=== PATIENT | female | born 1970 | race Caucasian/White ===

== ENCOUNTER 2017-01-15 07:28 | Day surgery (SDC) | payer OTHER ==
[~2017-01-15] VITALS: Ht 160 cm; Wt 73.9 kg
[~2017-01-15 07:28] MED LIST: ACET-1651 PO; IBUP200C5 PO; LEVO100T12 PO; LIDOCAINE 1% (10mg/ml) 2ml SDV INJ ONE; LR 1,000 ML IV SCH
[2017-01-15 07:42] VITALS: BP 102/64; PULSE 88; RESP 13; TEMP 98.2; O2SAT 96; Ht 160 cm; Wt 73.9 kg
[2017-01-15] MEDS ORDERED: RANI150T7 PO (08:00)
--- NOTE | 2017-01-15 08:15 | ANESPREOP ---
Anesthesia Record Date and Time DATE: 01/15/17 TIME: 08:11 Pre-Op Diagnosis constipation, stool changes Proposed Surgical Procedure COLONOSCOPY NPO since: > [place] Allergies: Coded Allergies: No Known Drug Allergies (Verified Allergy, Unknown, 01/15/17) Ht/Wt/BMI Height: 5 ' 3.00 " Weight: 73.900 kg BMI: 28.9 kg/m2 Vital Signs Date Time Temp Pulse Resp B/P Pulse Ox O2 Delivery O2 Flow Rate FiO2 01/15/17 07:42 98.2 88 13 102/64 96 Room Air Medications Inpatient Medications Current Medications Medications (Trade) Dose Ordered Sig/Vlad Start Time Stop Time Status Last Admin Dose Admin Lactated Ringer's (Lactated Ringers) 1,000 ml @ 50 mls/hr Q20H 01/15/17 07:00 01/15/17 08:01 50 MLS/HR Acetaminophen (Tylenol Extra Strength) 500 Mg Tablet, 500 MG PO DAILY, (Reported ) Last Taken: on 01/12/17 Ibuprofen (Advil) 200 Mg Capsule, 600 MG PO, ( Reported) Last Taken: on 01/08/17 Levothyroxine Sodium (Levothyroxine Sodium) 100 Mcg Tablet, 1 TAB PO ACB, (Reported) Once daily before breakfast Last Taken: on 01/14/17 0730 Ranitidine HCl (Ranitidine HCl) 150 Mg Tablet, 150 MG PO DAILY PRN for PRN ORDERS, (Reported) Last Taken: on 01/11/17 Currently on Beta Gera: No Medical/Surgical History Anesthesia PMH: Reports: *Diabetes (HYPOGLYCEMIA-CONTROLLED WITH DIET), Headaches, Reflux, Thyroid Disease (HYPOTHYROIDISM ), Denies: Anesthesia Reactions (NO AIRWAY ISSUES, SLOW TO WAKE), Arthritis, CHF, CVA/Stroke/TIA, Cancer, Clotting Problems, Deep Vein Thrombosis, Glaucoma, Hepatitis, Hiatal Hernia, Malignant Hyperthermia, Renal Disease, Rheumatic Fever, Sleep Apnea Smoking Status: Never smoker Has pt. smoked today?: No Substance Use Type: does not use Alcohol Intake: none HX of Last Menstrual Period: HYST. Past Surgical History Orthopedic Surgeries: Abdominal Surgeries: Yes - EUGENIA Genitourinary Surgeries: Cardiac Surgeries: Endocrine Surgeries: Reproductive Surgeries: Yes - HYST. , D&C, CERCLAGE X3 Neurological Surgeries: Ear Surgeries: Nose Surgeries: Throat Surgeries: Other Surgeries: Yes - HYSTERECYOMY Anesthesia Adverse Reactions: FOUND none Family Hx of Anesthesia Advers: none Hx of Motion Sickness: No Physical Exam Respiratory: Lungs clear Cardiovascular: FOUND Regular rate, rhythm, FOUND No murmur Airway Assessment Mallampati Score: II TMD: 3 Fingerbreadths Neck Extension: Good Overall Assessment: No Airway Concerns ASA: 2 Plan Anesthesia Plan: TIVA Discussion Discussed risks/options/alternatives of anesthesia and questions answered. Patient consents. Nursing pain assessment noted. Present: Family Member Attestation Statement Prior to the delivery of any anesthetic medication, I examined the patient, developed the plan, obtained the patient's consent and discussed the risk and benefits of the procedure with the patient/guardian. MAXX BHANDARI [employer] CONSULTANT STUDENT Jan 15, 2017 08:15
[2017-01-15] MEDS ORDERED: PROPOFOL 500mg 50 ML IV ONE (09:08)
[2017-01-15] MEDS ORDERED: LIDOCAINE 2% (20mg/ml) 5ml PF SDV ONE (09:08)
[2017-01-15 09:32] VITALS: BP 98/67; PULSE 82; RESP 12; TEMP 97; O2SAT 97
[2017-01-15 09:47] VITALS: BP 102/64; PULSE 76; RESP 16; O2SAT 98
[2017-01-15 10:01] VITALS: BP 97/64; PULSE 66; RESP 11; O2SAT 100
--- NOTE | 2017-01-15 10:02 | ANESPO ---
Post-Op Note Date 01/15/17 Time: 10:00 Status Pt Participated in Evaluation: Pt participated in person Vital Signs Date Time Temp Pulse Resp B/P Pulse Ox O2 Delivery O2 Flow Rate FiO2 01/15/17 09:47 76 16 102/64 98 Room Air 01/15/17 09:32 97.0 Respiratory Function: Airway patent, Regular respirations Cardiovascular Function: Regular pulse Mental Status: Alert/oriented Pain Level Intensity: 0 Hydration: Taking po fluids Complications during Recovery None apparent Follow-Up Instructions Instructions Per Surgeon AMIRAH MALONE CRNA Jan 15, 2017 10:02
--- NOTE | 2017-01-15 17:12 | OPNOTEF ---
DATE OF PROCEDURE: 01/15/2017 SURGEON: Edin Kidd MD PREOPERATIVE DIAGNOSIS Colorectal cancer surveillance/constipation/stool changes. POSTOPERATIVE DIAGNOSIS Colorectal cancer surveillance/constipation/stool changes, polyp at 25 cm from the anal verge. PROCEDURE: Colonoscopy with polypectomy at the terminal ileum, random colon and cold forceps polypectomy of polyp at 25 cm. ANESTHESIA: TIVA. BRIEF HISTORY Bruce is a 46-year-old patient of mine who came in for stool changes. She reported constipation since Noel as well as some stool caliber changes. After discussion with her the decision was made to proceed with colonoscopy. For completeness please refer to office notes. FINDINGS Upon colonoscopy there was no evidence for angiodysplastic lesions, diverticula or marques malignancies. The patient was found to have one small colonic polyp. This polyp was located at 25 cm from the anal verge. This polyp was about 3-4 mm in diameter was removed in its entirety via cold forceps technique and submitted for pathologic evaluation. DESCRIPTION OF PROCEDURE After informed consent was obtained, the patient was brought to the endoscopy suite and placed on the table in the left lateral decubitus position. The patient subsequently underwent total intravenous anesthesia by the nurse chopping machine operator per my request. Next, a digital rectal examination was performed; normal sphincter tone. No rectal masses were appreciated. An Olympus colonoscope was inserted in the anus and advanced with the lumen of the colon under direct visualization at all times until the cecum was ascertained. Triangulation of the tenia coli, ileocecal valve and appendiceal lumen were all visualized. The scope was then slowly withdrawn, again while maintaining visualization of the lumen at all times. As stated above, the entire colon was without evidence for angiodysplastic lesions or marques malignancies. The patient was found to have one small colonic polyp as described above. Photographs were taken for documentation. The scope continued to be withdrawn until it was removed from the patient's anal verge. The patient tolerated the procedure without difficulty and was sent back to the preoperative area in stable condition. We will await the biopsy results from these polypectomies and will proceed accordingly with further recommendations thereafter. I have asked Bruce to come back and follow up with me in one to two weeks to discuss pathology. Will talk about treatment for constipation at that point. DANNY
== END 2017-01-15 10:20 | disposition home or self-care (01) ==
LOC: SCU 07:28
PROVIDERS: ATTEND Family Medicine
DX: K63.5 Polyp of colon (principal); R19.5 Other fecal abnormalities; K59.00 Constipation, unspecified; Z83.71 Family history of colonic polyps; E03.9 Hypothyroidism, unspecified; J30.9 Allergic rhinitis, unspecified; K21.9 Gastro-esophageal reflux disease without esophagitis; Z79.899 Other long term (current) drug therapy
CPT/HCPCS: 45380; 82948; J7120